=== PATIENT | male | born 1955 | race Caucasian/White ===

== ENCOUNTER → 2019-01-12 07:18 | Outpatient (CLI) | payer OTHER, SELFPAY ==
--- NOTE | 2019-01-12 08:54 | PM.TREADMILL ---
Cardiac Stress Test Report Referral & Results Date Patient Seen: 01/12/19 Time Patient Seen: 08:30 Requesting provider: Michelle Holman Indication: Dyspnea on exertion Rest ECG: NSR Procedure Note: Today following both written and verbal informed consent, the patient was exercised according to a standard Josh protocol. The patient exercised for a total of 10 minutes 22 seconds achieving a maximum heart rate of 184. Patient's maximum systolic blood pressure was 195. This was an estimated 12.8 METs. Diffuse [address] deviations that resolved rapidly with rest. No signs or symptoms of angina. Occasional PVCs observed at higher heart rate. Functional activity impairment-25% on active scale. Impression: Low probability for ischemia. Smith treadmill score of 5 indicates a 97% 5 year survival rate. Please note: Actual ECG tracings can be found in the PACS system.
== END ==
PROVIDERS: Visit Provider Internal Medicine
DX: R06.00 Dyspnea, unspecified (principal)
CPT/HCPCS: 93016; 93017; 93018